=== PATIENT | female | born 1975 | race Caucasian/White ===

== ENCOUNTER 2019-01-31 16:44 | Outpatient (CLI) | payer OTHER | END 2019-01-31 23:59 | disposition home or self-care (01) | LOC: RAD 16:44 | PROVIDERS: ATTEND Internal Medicine | DX: J90 Pleural effusion, not elsewhere classified (principal); R05 Cough; F12.90 Cannabis use, unspecified, uncomplicated | CPT/HCPCS: 71046 ==

== ENCOUNTER 2019-02-12 14:44 | Outpatient (CLI) | payer OTHER | END 2019-02-12 23:59 | disposition home or self-care (01) | LOC: CFH 14:44 | PROVIDERS: ATTEND Internal Medicine | DX: J84.9 Interstitial pulmonary disease, unspecified (principal); J90 Pleural effusion, not elsewhere classified; F12.90 Cannabis use, unspecified, uncomplicated | CPT/HCPCS: 71250 ==